=== PATIENT | female | born 1980 | race American Indian/Alaskan Native ===

== ENCOUNTER 2018-03-24 13:46 | Emergency (ER) | payer BC, OTHER ==
[2018-03-24 14:46] VITALS: BMI 32.5
[2018-03-24 15:22] LABS: SQUAMOUS EPITHIAL 1 /hpf (0-5); URINE AMORPHOUS SEDIMENT OCC /ul (<OCC); URINE BACTERIA RARE (<OCC); URINE BILIRUBIN NEGATIVE (NEGATIVE); URINE BLOOD NEGATIVE (NEGATIVE); URINE CLARITY TURBID (Clear); URINE COLOR YELLOW (YELLOW); URINE GLUCOSE (UA) NEG (Normal); URINE LEUKOCYTE ESTERASE NEG Leu/uL (Negative); URINE PROTEIN NEGATIVE (NEGATIVE)
--- NOTE | 2018-03-24 15:53 | OBHP ---
Datetime: 03/24/2018 14:45 IP Adm Impression: , intrauterine ; No Active Labor; Intact Membranes IP Admit Plan: Observation/Evaluation Admit Comment, IP Provider: 37yo IUP 28w c/o some blood noted when she urinated today. no CTX; no VB; +FM PNC: CP/Dr [place] bell yesterday previa POBGYNH: x 2 FT; TOPx 2; HPV+ PMH: denies PSH: denies NKA PSoH: deneis smoking ETOH drugs A: IUP at 28w VB - none seen/ no evid of PTL PLAN: discussed with Dr Pate...observe and check UA Abdomen - PN: Normal Back - PN: Normal General - PN: Normal FHR - Baseline A Provider: 140 Membranes, Provider: Intact Contraction Comments Provider: 0 Pool Provider: Negative IP Hx Assessment: The History has been Reviewed and is Current EGA AdmitDate IP: 28.3 IP Chief Complaint: Vaginal bleeding NICHD Variability Prov Fetus A: Moderate 6-25bpm NICHD Accel Fetus A IP Provider: 10X10 FHR Category Provider Fetus A: Category I NICHD Decel Fetus A IP Provider: None Dilatation, Provider: 0 Genitourinary Exam: Normal
--- NOTE | 2018-03-24 15:53 | OBDCSUM ---
Datetime: 03/24/2018 15:37 Discharged to, Provider: Home Follow up at, Provider: with DR Pate Disch Instr Activity: Normal activity Disch Instr Diet: Regular Discharge Time: 03/24/2018 15:37 Follow up in weeks, Provider: as per MD's instructions Discharge Comment, Provider: She has no VB; no blood with urinating - UA + discussed with Dr Pate will give Cephalexin 500mg po TID/check urine culture...labor instructoins given and f/u Dr pate as scheduled
[2018-03-24 19:50] VITALS: BP 116/66; PULSE 97; RESP 17; TEMP 98.6; O2SAT 100
== END 2018-03-24 15:49 | disposition home or self-care (01) ==
LOC: H.EROB2 13:46
DX: O26.853 Spotting complicating pregnancy, third trimester (principal); Z3A.28 28 weeks gestation of pregnancy

== ENCOUNTER 2018-06-15 12:35 | Inpatient (IN) | payer BC, OTHER ==
[2018-06-15] MEDS ORDERED: Lactated Ringer's 1,000 ML IV ONE (12:43)
[2018-06-15] MEDS ORDERED: AMPicillin 2 GM in Sodium Chloride 0.9% 100 ML IVPB ONE (12:43)
[2018-06-15 12:44] VITALS: BMI 33.9
[2018-06-15] MEDS ORDERED: Lactated Ringer's 1,000 ML IV SCH (12:45)
[2018-06-15] MEDS ORDERED: AMPicillin 1 GM in Sodium Chloride 0.9% 100 ML IVPB SCH (12:45)
[2018-06-15 13:33] LABS: BASO % 0.7 % (0.0-2.0); EOS # 0.1 K/uL (0.0-0.7); EOS % 1.1 % (0.0-4.0); HEMOGLOBIN 10.9 g/dL (12.0-16.0); LYMPH # 1.7 K/uL (1.0-4.3); LYMPH % 23.1 % (20.0-40.0); MEAN CELL VOLUME 83.5 fl (81.0-99.0); MEAN CORPUSCULAR HGB CONC 31.2 g/dL (33.0-37.0); MEAN PLATELET VOLUME 9.5 fl (7.2-11.7); MONO # 0.6 K/uL (0.0-0.8); NEUT % 67.1 % (50.0-75.0); NRBC % 0.2 % (0.0-0.0); RBC 4.18 Mil/uL (3.80-5.20); RED CELL DISTRIBUTION WIDTH 22.9 % (11.5-14.5); WHITE BLOOD COUNT 7.5 K/uL (4.8-10.8)
[2018-06-15] MEDS ORDERED: Lidocaine 1% Inj (20ml) ONE (16:30)
[2018-06-15] MEDS ORDERED: OXYTOCIN/0.9 % NS 20 UNIT/1,000 ML BAG IV ONE ×3 (16:34→21:06)
[2018-06-15] MEDS ORDERED: Oxytocin 30 UNIT 30 UNITS/500 ML BAG IV ONE (16:34)
[2018-06-15] MEDS ORDERED: OXYTOCIN/0.9 % NS 20 UNIT/1,000 ML BAG IV SCH (16:45)
--- NOTE | 2018-06-15 17:00 | OBDS ---
DELIVERY PERSONNEL Anesthesiologist: na MATERNAL INFORMATION Medications in Delivery: pitocin Estimated Blood Loss (ml): 500cc Placenta Cultured: No Maternal Complications: Other Other Maternal Complications: low lying placenta Provider Comments: Delivered a living baby girl appears term cried spontaneously Peds called 9 /9, AF meconium stained Placenta delivered complete and intact but uterine atony noted after placenta and IM methergine given and uterine massage done and contracted well, small laceration repaired as a yamilet Tolerated procedure well no complications LABOR SUMMARY EDC: 06/13/2018 00:00 No. Babies in Womb: 1 Attempted: No Labor Anesthesia: None LABOR INFORMATION Reason for Induction: Not Applicable Onset of Labor: 06/15/2018 14:00 Complete Dilatation: 06/15/2018 16:25 Oxytocin: N/A Group B Beta Strep: Negative Antibiotics # of Doses: 1 Antibiotics Time of Last Dose: 1315 Steroids Given: None Reason Steroids Not Administered: Not Applicable MEMBRANES Membranes Rupture Method: Spontaneous Rupture of Membranes: 06/15/2018 14:05 Length of Rupture (hrs): 2.37 Amniotic Fluid Color: Light Meconium Amniotic Fluid Amount: Moderate Amniotic Fluid Odor: Normal STAGES OF LABOR Stage 1 hrs: 2 Stage 1 min: 25 Stage 2 hrs: 0 Stage 2 min: 2 Stage 3 hrs: 0 Stage 3 min: 3 Total Time in Labor hrs: 2 Total Time in Labor min: 30 VAGINAL DELIVERY Episiotomy: None Laceration Extension: First Degree Laceration Type: Perineal; Vaginal Other Laceration: na Laceration Repair: Yes Laceration Repair Note: small laceration repaired with 2-0 chromic continuously without any complica tion no other lacerations or tears noted. Initial Vag Sponge Count: 10 Final Vag Sponge Count: 10 Initial Vag Sharps Count: 1 Final Vag Sharps Count: 1 Sponge Count Correct: Yes Sharps Count Correct: Yes Count Comment: all count correct CSECTION DELIVERY Primary Indication: N/A Secondary Indication: N/A CSection Incision: N/A Uterine Closure: N/A BABY A INFORMATION Infant Delivery Date/Time: 06/15/2018 16:27 Method of Delivery: Vaginal Born in Route : No : N/A Forceps: N/A Vacuum Extraction: N/A Shoulder Dystocia : No SHOULDER DYSTOCIA BABY A Infant Delivery Date/Time: 06/15/2018 16:27 PRESENTATION/POSITION BABY A Presentation: Cephalic Cephalic Presentation: Vertex Vertex Position: Left Occipital Anterior Breech Presentation: N/A PLACENTA INFORMATION BABY A Placenta Delivery Time : 06/15/2018 16:30 Placenta Method of Delivery: Spontaneous Placenta Status: Delivered SCORES BABY A Heart Rate 1 min: >100 bpm Resp Effort 1 min: Good Cry Reflex Irritability 1 min: Cough or Sneeze or Pulls Away Muscle Tone 1 min: Active Motion Color 1 min: Body [place], Extremities Blue SCORE 1 MIN: 9 Heart Rate 5 min: >100 bpm Resp Effort 5 min: Good Cry Reflex Irritability 5 min: Cough or Sneeze or Pulls Away Muscle Tone 5 min: Active Motion Color 5 min: Body [place], Extremities Blue SCORE 5 MIN: 9 INFANT INFORMATION BABY A Gestational Age at Delivery: 40.0 Gestational Status: Term Outcome : Stillborn Infant Condition : Stable Sex: Female IDENTIFICATION/MEDS BABY A ID Band Location: Right Leg; Right Arm WEIGHT/LENGTH BABY A Infant Birthweight (gms): 3675 Infant Weight (lb): 8 Infant Weight (oz): 2 CORD INFORMATION BABY A No. Cord Vessels: 3 Nuchal Cord : N/A Nuchal Cord Other: na True Knot: na Cord pH Baby Arterial: na Infant Cord pH Baby Venous: na Cord Blood Taken: Yes Banking/Donate Info: na Suction: Mouth; Nose
[2018-06-15] MEDS ORDERED: Oxycodone/Acetaminophen 5/325 mg Tab PO PRN ×4 (17:04→21:06)
[2018-06-15] MEDS ORDERED: Benzocaine/Menthol SPRAY TOP PRN ×2 (17:04→21:06)
[2018-06-16 06:30] LABS: BASO % 0.2 % (0.0-2.0); EOS # 0.1 K/uL (0.0-0.7); EOS % 0.6 % (0.0-4.0); HEMOGLOBIN 8.7 g/dL (12.0-16.0); LYMPH # 1.9 K/uL (1.0-4.3); MEAN CORPUSCULAR HEMOGLOBIN 25.9 pg (27.0-31.0); MEAN CORPUSCULAR HGB CONC 31.9 g/dL (33.0-37.0); MEAN PLATELET VOLUME 9.7 fl (7.2-11.7); MONO # 0.8 K/uL (0.0-0.8); MONO % 7.2 % (0.0-10.0); NEUT # 8.2 K/uL (1.8-7.0); RBC 3.36 Mil/uL (3.80-5.20); RED CELL DISTRIBUTION WIDTH 22.5 % (11.5-14.5)
--- NOTE | 2018-06-16 12:25 | OBPPN ---
Datetime: 06/16/2018 12:18 PP Pain Prov: Within normal limits PP Nausea Prov: Denies PP Flatus Prov: Yes PP BM Prov: No PP Breasts Prov: Normal PP Heart Prov: Normal PP Lungs Prov: Normal PP Abdomen/Uterus Prov: Normal PP Lochia Prov: Normal PP Vulva/Perineum Prov: Normal PP CVA Tenderness Prov: Normal PP Extremities Prov: Normal PP Progress Prov: Normal PP Impression Prov: Normal progression PP Plan Prov: Continue present management PP Progress Note Prov: stable ppd1 no complaints continue prsent care IP PP Procedures: None Vital Signs Provider PP: Reviewed; Within Normal Limits
--- NOTE | 2018-06-17 12:04 | OBDCSUM ---
Datetime: 06/17/2018 12:00 Discharged to, Provider: Home Follow up at, Provider: Disch Instr Activity: Bedrest; May be up to bathroom; May be up for meals; May Shower Disch Instr Diet: Regular Discharge Instructions, Provider: Routine instructions given Discharge Diagnosis, Provider: Term Delivered Discharge Time: 06/17/2018 12:00 Follow up in weeks, Provider: 5-6 weeks in office Disch Referrals: None Disch Activity Restrictions: No lifting; No driving; Minimize walking; Minimize stair-climbing; No s exual activity; Nothing in vagina - [place], tampons, douche Contraception after Delivery: Undecided
[2018-06-17 18:07] VITALS: BP 117/60; PULSE 76; RESP 20; TEMP 98.3; O2SAT 99
== END 2018-06-17 13:45 | disposition home or self-care (01) | DRG 807 ==
LOC: H.EROB2 12:35 → H.L&D 12:36 → H.EROB2 12:43 → H.L&D 12:44 → H.OB/GYN 21:03
PROVIDERS: ADMIT Specialist; ATTEND Specialist
PROC: 10E0XZZ Delivery of Products of Conception, External Approach (ICD-10-PCS; principal; 2018-06-15)
PROC: 0HQ9XZZ Repair Perineum Skin, External Approach (ICD-10-PCS; 2018-06-15)
PROC: 4A1HXCZ Monitoring of Products of Conception, Cardiac Rate, External Approach (ICD-10-PCS; 2018-06-15)
DX: O70.0 First degree perineal laceration during delivery (principal); Z37.0 Single live birth; O44.40 Low lying placenta NOS or without hemorrhage, unspecified trimester; Z3A.40 40 weeks gestation of pregnancy